=== PATIENT | male | born 1995 | race Caucasian/White ===

== ENCOUNTER 2017-01-08 19:00 | Inpatient (IN) | payer OTHER ==
[~2017-01-08] VITALS: Ht 185.4 cm; Wt 63.0 kg
--- NOTE | ~2017-01-08 | A ---
[facility] Nutrition Therapy DATE: 01/11/17 Patient: CANDICE MADERA Physician: JEANIE Address: [address] [facility] Room/Bed: [address], Zip: [place] [address] Admit Date: 01/10/17 Date of : [birth year] Height: 6 1 Weight: [phone] NUTRITIONAL ASSESSMENT: REASON: LOW BMI (18.3), UNINTENTIONAL WEIGHT LOSS PATIENT ADMITTED FOR SA AND SUBSTANCE ABUSE PMH: DEPRESSION, ANXIETY, SUBSTANCE ABUSE Anthropometrics: HT: 6'1", WT: 139#, BMI: 18.3 Labs: NO LABS AVAILABLE Meds: DESYREL Assessment: PATIENT IS A 21 Y/O MALE ADMITTED FOR A SUICIDE ATTEMPT AND SUBSTANCE ABUSE. PATIENT IS CURRENTLY UNEMPLOYED, HOMELESS, SMOKES 1 PPD, HAS FREQUENT MARIJUANA USE AND DAILY METH USE. HE IS GREIVING THE LOSS OF HIS MOTHER EARLIER THIS YEAR. ON 01/08 PATIENT CONSUMED 80 XANAX PILLS IN A SUICDE ATTEMPT AND WAS SENT OUT FOR MEDICAL CLEARANCE. UPON ADMIT PATIENT STATED A GOOD APPETITE WITH NO RECENT WEIGHT LOSS, AND HE HAS NOT BEEN SLEEPING (6HRS/NIGHT). NURSING REPORTS GOOD PO INTAKES. WILL REQUEST A RE-WEIGH FROM NURSING TO ENSURE THE ACCURACY OF ADMIT WEIGHT. PATIENT IS ON A REGULAR DIET WITH NO CAFFEINE. THERE ARE NO GI OR SKIN ISSUES NOTED ATT. Dx: POSSIBLE INADEQUATE NUTRIENT INTAKE R/T CURRENT CONDITION AEB LOW BMI?, NUTRITIONAL RISK POINT Intervention: REGULAR DIET, NO CAFFEINE, MEDS PER MD, PSYCH Monitoring, Evaluation and Goals: 1. ADEQUATE PO INTAKES >50% OF MEALS 2. PREVENT, CORRECT MICRO/MACRO NUTRIENT DEFICIENCIES 3. WEIGHT; PREVENT WEIGHT LOSS MONITOR: WEIGHTS, LABS, PO/FLUID INTAKES Recommendations: 1. CONTINUE REGULAR DIET WITH NO CAFFEINE. WILL INCREASE ENTREES TO LARGER PORTIONS 2. ENCOURAGE ADEQUATE PO AND FLUID INTAKES 3. OBTAIN RE-WEIGHT. CONTINUE TO WEIGH PATIENT ROUTINELY (EVERY 3-4 DAYS) RD TO F/U PER PROTOCOL AND PRN R/T PATIENT MILDLY COMPROMISED [facility] Nutrition Therapy DATE: 01/11/17 Patient: CANDICE MADERA Physician: JEANIE Address: [address] [facility] Room/Bed: [address], Zip: [place] [address] Admit Date: 01/10/17 Date of : [birth year] Height: 6 1 Weight: [phone] Respectfully, GREG DALEY RD, LD [facility] cc: client file
--- NOTE | ~2017-01-08 | PA ---
Unit #: [id number] #: [id number] Patient: CANDICE MADERA [id number] [facility] [address] [place] [address] [id number] MR#: [id number] NAME: CANDICE MADERA ROOM: P208 Age: 21 Sex: M Admission Date: 01/10/2017 : 1995 Date of Assessment: Attending Physician: Bernard Hayes M.D. Admitting Physician: Bernard Hayes M.D. Primary Care Physician: Primary Care Physician No PSYCHIATRIC ASSESSMENT DATE OF SERVICE 01/11/2017. INFORMANTS The patient, reliable and OLOPtorie. CHIEF COMPLAINT Overdose. HISTORY OF PRESENT ILLNESS Candice Madera is a 21-year-old man, who presented to this hospital after taking more than 20 tablets of Xanax in an attempt to kill himself. He was sent to a local hospital where he was evaluated and medically cleared and placed on a 72-hour hold. He had multiple life stressors including the recent of his mother and current homeless status. He also had been using methamphetamine in addition to the Xanax, although he denied further suicidal ideation, intent, or plan. He was admitted for assessment and stabilization. PAST PSYCHIATRIC HISTORY The patient was at this facility in 2003 and has also been at [facility] in the past as a young child for anger control problems. He reports being noncompliant with medications outside of facilities. FAMILY PSYCHIATRIC HISTORY There is a family history of substance abuse, depression, and suicide attempts. SOCIAL HISTORY The patient is single and has a supportive former girlfriend who helps him get back and forth to work, they have one child together. He did not achieve his high school diploma and is currently erratically employed. PAST MEDICAL HISTORY Significant for asthma. MEDICATIONS None currently. ALLERGIES No known medication allergies. SUBSTANCE USE HISTORY Unit #: [id number] #: [id number] Patient: CANDICE MADERA The patient has a history of cannabis abuse and has been using alprazolam and amphetamine recently. MENTAL STATUS EXAMINATION Candice presented as a mildly disheveled man, who appeared his stated age. He was cooperative with the examination. His speech was spontaneous and easily understood. His musculoskeletal examination was calm. His mood was euthymic with a congruent affect. He was alert and fully oriented. His memory and concentration were intact. His thought processes were logical with no active psychosis. He now denied suicidal ideation, intent, or plan. Insight and judgment, fair. Fund of knowledge and abstraction, fair. ASSETS AND LIABILITIES The patient is youthful and knows local resources. Liabilities include noncompliance with treatment and recent overdose. ADMITTING DIAGNOSES AXIS I: Adjustment disorder with depressed mood, F43.21; amphetamine abuse; and alprazolam abuse. AXIS II: Diagnosis deferred. AXIS III: Recent alprazolam overdose and history of asthma. AXIS IV: AXIS V: PSYCHIATRIC PLAN The patient was admitted and placed on suicide precautions. We will monitor him for withdrawal symptoms and treat as appropriate. He declines initiation of an antidepressant medication and we will continue to monitor him and make further treatment suggestions as appropriate. TREATMENT GOALS Resolution of overdose, resolution of SI, improvement in insight, and improvement in coping skills. DISCHARGE PLANNING Follow up with primary care physician. ESTIMATED LENGTH OF STAY 5 days. Dictated by... Bernard Hayes M.D. MILLA/sarah TD: 01/11/2017 17:07 JOB #: [id number] Unit #: [id number] #: [id number] Patient: CANDICE MADERA PSYCHIATRIC ASSESSMENT Page 1 of 1 X Bernard Hayes MD PSYCHIATRIC ASSESSMENT
--- NOTE | ~2017-01-08 | HP ---
Unit #: [id number] #: [id number] Patient: CANDICE MADERA [id number] [place] [address] [id number] MR#: [id number] NAME: CANDICE MADERA ROOM: P208 Age: 21 Sex: M Admission Date: 01/10/2017 : 1995 Attending Physician: Bernard Hayes M.D. Admitting Physician: Bernard Hayes M.D. Primary Care Physician: Primary Care Physician No HISTORY AND PHYSICAL HISTORY OF PRESENT ILLNESS Candice is a 21 year old admitted to [address] [place] [address] because of his continued polysubstance abuse which includes benzodiazepines and methamphetamine. He has had other admissions to this facility for the same. PAST MEDICAL HISTORY 1. Long history of illicit substance abuse. 2. Asthma. PAST SURGICAL HISTORY 1. Right arm. 2. Oral. ALLERGIES No known drug allergies. SOCIAL HISTORY Smokes one pack per day. Denies alcohol. Admits to a long history of illicit substance abuse to include methamphetamine and abusing benzodiazepines. FAMILY HISTORY Medically noncontributory. REVIEW OF SYSTEMS CONSTITUTIONAL: No fever or chills. HEENT: Denies any sore throat, ear pain or runny nose. CARDIOVASCULAR: Denies chest pain, irregular heart rhythm or palpitations. CHEST: Denies shortness of breath or cough. No hemoptysis. GASTROINTESTINAL: Denies nausea, vomiting, diarrhea or chronic constipation. ENDOCRINE: Denies history of increased thirst or urination. No recent significant weight loss or gain. GENITOURINARY: Denies dysuria, frequency, or hematuria. SKIN: Denies any rashes. HEMATOLOGIC: Denies history of increased bleeding or bruising. MUSCULOSKELETAL: Denies any hot, swollen joints. No generalized muscle pain. NEUROLOGIC: Denies problems with vision or speech. No frequent, severe headaches. No numbness, tingling or weakness in any extremities. Denies loss of bladder or bowel control. Unit #: [id number] #: [id number] Patient: CANDICE MADERA NOTE: The patient was just discharged from [facility] after admission for an overdose. CURRENT MEDICATIONS 1. Desyrel p.r.n. 2. Milk of Magnesia p.r.n. 3. Maalox p.r.n. 4. Tylenol p.r.n. 5. Nicotine patch 14 mg q day PHYSICAL EXAMINATION GENERAL: Alert, well-nourished, in no apparent distress. VITAL SIGNS: Blood pressure 110/70, heart rate 64, respirations 16, temperature 98.6. WEIGHT: 139. HEIGHT: 6 foot 1 inches. SKIN: Warm and dry without rash or lesion. HEENT: Normocephalic. TMs not viewed. Oral and nasal passages clear. Conjunctivae clear. Pupils equal, round and reactive to light and accommodation. Extraocular movements intact. NECK: Supple without lymphadenopathy or thyromegaly. HEART: Regular rate and rhythm without murmur. LUNGS: Clear. ABDOMEN: Soft, nontender. : Not done. EXTREMITIES: No evidence of cyanosis, clubbing or edema. Moves all extremities without focal deficit. NEUROLOGICAL: Grossly within normal limits. Cranial Nerves: II: Visual aldana are intact. III, IV AND : Extraocular movements are intact. Pupils are equal, round and reactive to light. V: Facial sensation is grossly normal. VII: Facial movements and expression are normal. VIII: Auditory acuity grossly intact. IX, X: Uvula is midline. Phonation is normal. XI: Patient shrugs shoulders and turns head normally. XII: Tongue protrudes in the midline. Sensory and Motor Function: Sensory and motor sensation is grossly normal. Motor: moves all extremities well. Coordination: Gait is normal. Deep Tendon Reflexes: Intact. IMPRESSION Psychiatric admission. RECOMMENDATIONS PSYCHIATRIC: Per psychiatrist. MEDICAL: I see no contraindications to participating in facility's activities. MEDICAL PROGNOSIS Good. MEDICAL CONDITION Stable. Unit #: [id number] #: [id number] Patient: CANDICE MADERA Dictated by... Jeny Olvera P.A.-C. for Madison Estevez/camron TD: 01/12/2017 00:21 JOB #: [id number] HISTORY AND PHYSICAL Page 1 of 1 X Jeny Olvera HISTORY AND PHYSICAL
== END 2017-01-13 14:05 | disposition home or self-care (01) | DRG 881 ==
LOC: P2S 01-10 21:57
DX: F43.21 Adjustment disorder with depressed mood (principal); F15.10 Other stimulant abuse, uncomplicated; J45.909 Unspecified asthma, uncomplicated; F17.210 Nicotine dependence, cigarettes, uncomplicated